=== PATIENT | female | born 1990 | race Caucasian/White ===

== ENCOUNTER 2019-02-28 13:41 | Emergency (ER) | payer OTHER ==
[~2019-02-28] VITALS: Ht 158.8 cm; Wt 81.2 kg
[2019-02-28 14:11] VITALS: BP 121/75
--- NOTE | 2019-02-28 15:55 | NUR ---
CALLED PRASHANT TO READ IMAGES
== END 2019-02-28 16:18 | disposition home or self-care (01) ==
LOC: ER 13:41
DX: S93.492A Sprain of other ligament of left ankle, initial encounter (principal); W01.0XXA Fall on same level from slipping, tripping and stumbling without subsequent striking against object, initial encounter; Y93.89 Activity, other specified; Y92.89 Other specified places as the place of occurrence of the external cause; Y99.8 Other external cause status
CPT/HCPCS: 73610-TC; 73630-TC

== ENCOUNTER 2022-05-20 17:48 | Emergency (ER) | payer OTHER ==
[~2022-05-20] VITALS: Ht 160 cm; Wt 113.4 kg
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
--- NOTE | 2022-05-20 20:00 | NUR ---
US AT BED SIDE
--- NOTE | 2022-05-20 20:57 | NUR ---
Patient discharged to home in stable condition. Written and verbal after care instructions given. Patient verbalizes understanding of instruction.
[2022-05-20 23:01] VITALS: BP 122/77
== END 2022-05-20 23:01 | disposition home or self-care (01) ==
LOC: ER 17:57
DX: M71.38 Other bursal cyst, other site (principal)
CPT/HCPCS: 73590-TC; 93971-TC

== ENCOUNTER 2023-01-27 17:16 | Emergency (ER) | payer OTHER ==
[~2023-01-27] VITALS: Ht 157.5 cm; Wt 113.4 kg
--- NOTE | 2023-01-27 17:45 | NUR ---
BIBSELF C/O CHEST PAIN SINCE YESTERDAY RADIATING TO LEFT SHOULDER, PAIN SCALE OF 6/10. PATIENT STATED THAT SHE HAS HISTORY OF PULMONARY EMBOLISM LAST YEAR. THERE IS NO SIGNS AND SYMPTOMS OF DISTRESS THIS MOMENT. PLACED ON MONITOR. ORDERS CARRIED OUT. PLAN OF CARE CONTINUES.
--- NOTE | 2023-01-27 18:00 | NUR ---
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
[2023-01-27 18:13] LABS: BASOPHILS % (AUTO) 0.7 % (0.0-2.0); HEMATOCRIT 37 % (33-45); HEMOGLOBIN 11.6 g/dL (11.5-14.8); LYMPHOCYTES # (AUTO) 1.9 K/uL (0.8-4.8); LYMPHOCYTES % (AUTO) 31.1 % (20.0-44.0); MEAN CORPUSCULAR HGB CONC 32 g/dl (31.0-36.0); MEAN CORPUSCULAR VOLUME 85 fL (82-100); MONOCYTES # (AUTO) 0.4 K/uL (0.1-1.30); MONOCYTES % (AUTO) 6.1 % (2.0-12.0); NEUTROPHILS # (AUTO) 3.8 K/uL (1.8-8.9); NEUTROPHILS % (AUTO) 61.1 % (43.0-81.0); PLATELET COUNT (AUTO) 365 K/uL (150-450); RED BLOOD CELL COUNT(AUTO) 4.29 MIL/uL (4.0-5.2); WHITE BLOOD COUNT (AUTO) 6.2 K/uL (4.3-11.0)
--- NOTE | 2023-01-27 18:15 | NUR ---
EMT AT BEDSIDE FOR EKG
--- NOTE | 2023-01-27 18:15 | NUR ---
PATIENT UNABLE TO PROVIDE URINE SAMPLE THIS TIME. WILL TRY AGAIN LATER
[2023-01-27 18:23] LABS: CALCIUM, SERUM 9.1 mg/dL (8.5-10.1); CARBON DIOXIDE 28 mmol/L (21-32); CHLORIDE 105 mmol/L (98-107); CREATININE 0.7 mg/dL (0.6-1.3); GLUCOSE 88 mg/dL (74-106); POTASSIUM 3.7 mmol/L (3.5-5.1); SODIUM SERUM 139 mmol/L (136-145); UREA NITROGEN, BLOOD 14 mg/dL (7-18)
--- NOTE | 2023-01-27 19:13 | NUR ---
ESTABLISHED IV LINE 20 G LEFT AC
[2023-01-27] MEDS ORDERED: IV NS 0.9% 250 ML IV ONE (19:14)
[2023-01-27] MEDS ORDERED: IOHEXOL-350 100 ML VIAL IV ONE (19:14)
--- NOTE | 2023-01-27 19:20 | NUR ---
Pt is noted in bed alert, responsive as report is recevied from the off going nurse that pt was brought in by Father, C/O chest apin since yesterdayand pain get worse Inspiation but Sat was 97% on Room Air. Pt care continue with no S/S off distress or C/O pain at these hour.
--- NOTE | 2023-01-27 21:05 | NUR ---
Pt is noted off the unit as she is been discharge to home with all dsicahrge instructions given and IV Access discontinue with no S/S off distress or C/O Pain.
[2023-01-27 21:09] VITALS: BP 120/68
== END 2023-01-27 21:11 | disposition home or self-care (01) ==
LOC: ER 17:17
DX: R07.81 Pleurodynia (principal)
CPT/HCPCS: 99285; 71275; 93005; 85025; 80048; 85378; 84484; 83880; J7050; Q9967; 36415

== ENCOUNTER 2025-01-13 19:37 | Emergency (ER) | payer OTHER ==
[~2025-01-13] VITALS: Ht 157.5 cm; Wt 109.8 kg
[2025-01-13 21:53] VITALS: BP 116/63; TEMP 97.7; O2SAT 98
== END 2025-01-13 21:53 | disposition home or self-care (01) ==
LOC: ER 19:50
DX: Z04.2 Encounter for examination and observation following work accident (principal); R07.89 Other chest pain; R06.00 Dyspnea, unspecified; Z86.711 Personal history of pulmonary embolism; Z88.5 Allergy status to narcotic agent; V43.52XA Car driver injured in collision with other type car in traffic accident, initial encounter; Y93.89 Activity, other specified; Y92.488 Other paved roadways as the place of occurrence of the external cause; Y99.8 Other external cause status
CPT/HCPCS: 71045-TC